=== PATIENT | male | born 1945 | race Caucasian/White ===

== ENCOUNTER 2017-04-18 10:09 | Day surgery (SDC) | payer MEDICARE, BC ==
[~2017-04-18 10:09] MED LIST: Acetaminophen TAB* 325 MG PO PRN; Buffered Lidocaine 0.9% SYRIN* 5 ML/SYR SYRINGE INTRADERM ONE
[2017-04-18] MEDS ORDERED: Midazolam* 1 MG/ML 2 ML VIAL (2 MG) ONE ×2 (12:28→12:43)
[2017-04-18 13:30] VITALS: BP 129/71
[2017-04-18] MEDS ORDERED: Buffered Lidocaine 0.9% SYRIN* 5 ML/SYR SYRINGE ONE (13:32)
[2017-04-18] MEDS ORDERED: Lidocaine 2% EPI 1:200000 MPF* 20 ML VIAL ONE (13:32)
[2017-04-18] MEDS ORDERED: Cyclopentolate 1% OPTH.SOL* 2 ML BTL ONE (13:32)
[2017-04-18] MEDS ORDERED: Lidocaine 1% MPF* 2 ML VIAL ONE (13:32)
[2017-04-18] MEDS ORDERED: Phenylephrine 2.5% OPTH.SOL* 2 ML BTL ONE (13:32)
[2017-04-18] MEDS ORDERED: Povidone Iodine 5% OPTH* 30 ML BTL ONE (13:32)
[2017-04-18] MEDS ORDERED: acetaZOLAMIDE TAB* 250 MG ONE (13:32)
[2017-04-18] MEDS ORDERED: Flurbiprofen 0.03% OPTH.SOL* 2.5 ML BTL ONE (13:32)
[2017-04-18] MEDS ORDERED: Proparacaine 0.5% OPHTH.SOL* 15 ML BTL ONE (13:32)
[2017-04-18] MEDS ORDERED: Neomycin/Polymy/Dex OPTH.SUSP* MAXITROL 0.1% 5 ML ONE (13:32)
--- NOTE | 2017-04-19 01:54 | OP ---
DATE OF OPERATION: 04/18/17 - [facility] DATE OF : 43 SURGEON: Gilberto Blount M.D. PREOPERATIVE DIAGNOSIS: Cataract, right eye. POSTOPERATIVE DIAGNOSIS: Cataract, right eye. OPERATIVE PROCEDURE: Phacoemulsification, right eye with IOL. DESCRIPTION OF PROCEDURE: The patient was brought to the operating room after being given 1/2% Alcaine with epinephrine drops in the preoperative area. The eye was prepped and draped in the usual sterile fashion. Sterile drape and eyelid speculum were placed. Again, topical 1/2% Alcaine with epinephrine was given. A paracentesis incision was made at the 9 o'clock position with the No.75 blade. Clear cornea incision 2.2 x 2.2-mm was created at the 12 o'clock position starting at the anterior limbus using the 2.2-mm keratome. The anterior chamber was irrigated with 0.4 mL of 1% non-preservative intracameral lidocaine and filled with DisCoVisc. A capsulorrhexis was completed using the cystotome and the Utrata forceps. Hydrodissection was performed with balanced salt solution. The lens nucleus was removed with the Phacoemulsification handpiece without incident. Cortex was removed with the irrigation-aspiration handpiece. The capsular bag was re-inflated using DisCoVisc and an [id number] 19.5 implant was inserted with the shooter. Pupil was only 3.5 mm. A Malyugin ring was used to dilate the pupil prior to capsulorrhexis and removed after insertion of the lens. The irrigation-aspiration handpiece was used to remove all residual DisCoVisc. The eye was refilled with balanced salt solution and the wound checked and found to be watertight. Topical Maxitrol drops were given. Indication for complex cataract surgery: Iris abnormalities requiring pupil dilation device. [id number]/[facility] #: [id number] MTDD
== END 2017-04-18 13:49 | disposition home or self-care (01) ==
LOC: OREAST 10:09
PROVIDERS: ATTEND Specialist
DX: H25.811 Combined forms of age-related cataract, right eye (principal); Q13.2 Other congenital malformations of iris; J45.909 Unspecified asthma, uncomplicated; Z85.46 Personal history of malignant neoplasm of prostate
CPT/HCPCS: A9270-GY; J2250; V2632

== ENCOUNTER 2017-04-25 08:15 | Day surgery (SDC) | payer MEDICARE, BC ==
[2017-04-25] MEDS ORDERED: Midazolam* 1 MG/ML 2 ML VIAL (2 MG) ONE ×2 (10:13→10:29)
[2017-04-25 10:54] VITALS: BP 119/69
[2017-04-25] MEDS ORDERED: Buffered Lidocaine 0.9% SYRIN* 5 ML/SYR SYRINGE ONE (14:45)
[2017-04-25] MEDS ORDERED: Proparacaine 0.5% OPHTH.SOL* 15 ML BTL ONE (14:45)
[2017-04-25] MEDS ORDERED: Povidone Iodine 5% OPTH* 30 ML BTL ONE (14:45)
[2017-04-25] MEDS ORDERED: Cyclopentolate 1% OPTH.SOL* 2 ML BTL ONE (14:45)
[2017-04-25] MEDS ORDERED: acetaZOLAMIDE TAB* 250 MG ONE (14:45)
[2017-04-25] MEDS ORDERED: Lidocaine 2% EPI 1:200000 MPF* 20 ML VIAL ONE (14:45)
[2017-04-25] MEDS ORDERED: Flurbiprofen 0.03% OPTH.SOL* 2.5 ML BTL ONE (14:45)
[2017-04-25] MEDS ORDERED: Neomycin/Polymy/Dex OPTH.SUSP* MAXITROL 0.1% 5 ML ONE (14:45)
[2017-04-25] MEDS ORDERED: Phenylephrine 2.5% OPTH.SOL* 2 ML BTL ONE (14:45)
[2017-04-25] MEDS ORDERED: Lidocaine 1% MPF* 2 ML VIAL ONE (14:45)
--- NOTE | 2017-04-26 04:52 | OP ---
DATE OF OPERATION: 04/25/17 - [facility] DATE OF : 43 SURGEON: Gilberto Blount M.D. PREOPERATIVE DIAGNOSIS: Cataract, left eye. POSTOPERATIVE DIAGNOSIS: Cataract, left eye. OPERATIVE PROCEDURE: Phacoemulsification, left eye with IOL. DESCRIPTION OF PROCEDURE: The patient was brought to the operating room after being given 1/2% Alcaine with epinephrine drops in the preoperative area. The eye was prepped and draped in the usual sterile fashion. Sterile drape and eyelid speculum were placed. Again, topical 1/2% Alcaine with epinephrine was given. A paracentesis incision was made at the 3 o'clock position with the No.75 blade. Clear cornea incision 2.2 x 2.2-mm was created at the 6 o'clock position starting at the anterior limbus using the 2.2-mm keratome. The anterior chamber was irrigated with 0.4 mL of 1% non-preservative intracameral lidocaine and filled with DisCoVisc. A capsulorrhexis was completed using the cystotome and the Utrata forceps. Hydrodissection was performed with balanced salt solution. The lens nucleus was removed with the Phacoemulsification handpiece without incident. Cortex was removed with the irrigation-aspiration handpiece. The capsular bag was re-inflated using DisCoVisc and an [id number] 20 implant was inserted with the shooter. A Malyugin ring was used to dilate the pupil prior to capsulorrhexis because the pupil was only about 3 mm in size, and removed after insertion of the lens. The irrigation- aspiration handpiece was used to remove all residual DisCoVisc. The eye was refilled with balanced salt solution and the wound checked and found to be watertight. Topical Maxitrol drops were given. Indication for complex cataract surgery: Iris abnormalities requiring pupil dilation device. [id number]/[facility] #: [id number] [facility]
== END 2017-04-25 11:04 | disposition home or self-care (01) ==
LOC: OREAST 08:15
PROVIDERS: ATTEND Specialist
DX: H25.812 Combined forms of age-related cataract, left eye (principal); Q13.2 Other congenital malformations of iris; J45.909 Unspecified asthma, uncomplicated; Z85.46 Personal history of malignant neoplasm of prostate
CPT/HCPCS: A9270-GY; J2250; V2787

== ENCOUNTER 2018-03-16 16:55 | Emergency (ER) | payer MEDICARE, BC ==
[2018-03-16] MEDS ORDERED: Lidocaine 2% JELLY* 6 ML JELLY TOPICAL ONE (17:01)
[2018-03-16 17:55] VITALS: BP 00/00
[2018-03-16 18:05] LABS: Urine Appearance Clear; Urine Blood 3+ (Negative); Urine Color Yellow; Urine Ketones Trace (Negative); Urine Protein 1+(30 mg/dL) (Negative); Urine Specific Gravity 1.013 (1.010-1.030); Urine Urobilinogen Negative (Negative)
--- NOTE | 2018-03-16 18:18 | CONS ---
EMERGENCY ROOM CONSULTATION NOTE: DATE OF CONSULT: 03/16/18 DIAGNOSES: 1. Urinary retention. 2. Urethral stricture. 3. History of prostate carcinoma. PROCEDURE: 1. Urethral dilation. 2. Complex placement of Lopez catheter (16-[place]i). HISTORY OF PRESENT ILLNESS: Mr. Denny is a 72-year-old white male who had undergone a radical retropubic prostatectomy for carcinoma of the prostate many years ago. He developed PSA recurrence and received a full course of salvage radiation therapy. He presented to my office last week with decreased urinary stream and episodes of hematuria. CT urogram showed normal kidneys and ureters. The bladder looked normal except for some thickening. 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 Office cystoscopy showed a tight urethral stricture was noted just distal to the membranous urethra and could not be bypassed to examine the bladder. The plan was to bring the patient to the OR at a alter date for cystoscopy, urethral dilation and possible bladder biopsies. The patient called me this afternoon with symptoms of urinary retention. He has been having suprapubic distention, very slow stream, intermittency and voiding in small amounts,with feeling of incomplete bladder emptying. No associated gross hematuria. He was referred to the emergency room where I saw him there. By that time, he was able to void with very slow stream, and bladder scan showed residual of about 100 cc. He was still having difficulty voiding. PROCEDURE: Urethral dilation was performed after instilling Xylocaine jelly in the urethra, using stiff coude-tipped catheters. The dilation was performed sequentially from 12-[place]i to 18-[place]i. No false passage was created with the dilations and there was minimal urethral bleeding. A 16-[place] Lopez catheter was then successfully passed inside the bladder, and a total of about 100 cc of clear urine drained. Urine specimen was sent for urine culture. PLAN: The plan is to discharge the patient home with the Lopez catheter. He will be seen in the office next week and the catheter will be changed to a 20- [place]i catheter and then he will be brought back in for cystoscopy for work-up of the hematuria. Instructions were given for followup care. [id number]/[facility] #: [id number] [place]
== END 2018-03-16 17:53 | disposition home or self-care (01) ==
LOC: ED 16:55
DX: R33.9 Retention of urine, unspecified (principal); Z85.46 Personal history of malignant neoplasm of prostate
CPT/HCPCS: 81003; 81015; 87086; 99281